=== PATIENT | female | born 1925 | race Caucasian/White ===

== ENCOUNTER 2016-05-02 15:10 | Emergency (ER) | payer MEDICARE, BC ==
[~2016-05-02] VITALS: Ht 152.4 cm; Wt 68.0 kg
[2016-05-02 15:10] VITALS: BP 120/53; PULSE 60; RESP 14; TEMP 98; O2SAT 93
[~2016-05-02 15:10] MED LIST: ALTA1.256 PO; ASPI325T PO; ASPI81 PO; CARV3.125 PO; CLOP75 PO; NEUR100C PO; ROSU5 PO
[2016-05-02 15:22] VITALS: RESP 16; O2SAT 93
[2016-05-02] MEDS ORDERED: SODIUM CHLOR 0.9% 1000 ML INJ 1,000 ML IV SCH (15:30)
--- NOTE | 2016-05-02 15:30 | PD ---
HPI Chief Complaint: General Weakness Time Seen by Provider: 15:17 Travel History International Travel<30 days: No Contact w/Intl Traveler<30days: No Traveled to known affect area: No History of Present Illness HPI 89-year-old female complains generalized malaise and weakness, coughing congestion and diarrhea. Patient states that the generalized malaise and weakness started yesterday. Patient states that she has nonproductive persistent cough since yesterday. Patient has nasal congestion since yesterday also. Patient denies any chest pain or shortness of breath. Patient denies abdominal pain. Patient started having diarrhea this afternoon. Patient denies any blood or mucus in the stool. Patient denies any back pain, fever chills. Patient has history of CAD status post stent placement, hyperlipidemia , CHF and hypertension. PFSH Past Medical History Arthritis: Yes (NECK/SHOULDERS) Asthma: No Autoimmune Disease: No Blood Disorders: No Anxiety: No Depression: No Heart Rhythm Problems: No Cancer: No Cardiac Catheterization: Yes Cardiovascular Problems: Yes (BYPASS 4 YRS AGO) High Cholesterol: Yes Chest Pain: No Congestive Heart Failure: Yes COPD: No Cerebrovascular Accident: No Diabetes: No Diminished Hearing: Yes (RIGHT EAR DIMINISHED) Endocrine: No GERD: No Glaucoma: No Genitourinary: No Headaches: No Hepatitis: No Hiatal Hernia: No Hypertension: Yes Immune Disorder: No Kidney Stones: No Musculoskeletal: Yes Neurologic: Yes Psychiatric: No Respiratory: No Migraines: No Myocardial Infarction: Yes (2003) Renal Failure: No Seizures: No Sickle Cell Disease: No Sleep Apnea: No Thyroid Disease: No Ulcer: No Tetanus Vaccination: Unknown Influenza Vaccination: Yes PNEUMOCCOCAL Vaccine (Year): 1 Menopausal: Yes Past Surgical History Abdominal Surgery: No AICD: No Appendectomy: No Arteriovenous Shunt: No Cardiac Surgery: Yes Cholecystectomy: No Coronary Artery Bypass Graft: Yes (01/19/2004) Ear Surgery: No Endocrine Surgery: No Eye Surgery: Yes (CATARACT SURGERY BILAT EYES 2004) Genitourinary Surgery: No Gynecologic Surgery: Yes (HYSTERECTOMY ) Hysterectomy: Yes () Insulin Pump: No Joint Replacement: No Oral Surgery: No Pacemaker: No Thoracic Surgery: No Other Surgery: Yes Social History Alcohol Use: No Tobacco Use: No Substance Use: No Allergies-Medications (Allergen,Severity, Reaction): Coded Allergies: Lipitor (Verified Allergy, Severe, 01/22/11) STATINS Lovastatin (Verified Allergy, Severe, ALL "STATINS",LEG CRAMPS,HIVES,HAIR LOSS, 01/22/11) Penicillin (Verified Allergy, Unknown, Rash, 01/22/11) Uncoded Allergies: STATINS (Adverse Reaction, Severe, LEG CRAMPS AND RASH, 07/06/09) Reported Meds & Prescriptions Reported Meds & Active Scripts Active Reported Plavix (Clopidogrel Bisulfate) 75 Mg Tab 75 Mg PO DAILY Aspirin 325 Mg Tab 325 Mg PO DAILY Altace (Ramipril) 1.25 Mg Cap 2.5 Mg PO BID Coreg (Carvedilol) 3.125 Mg Tab 3.125 Mg PO BID Neurontin (Gabapentin) 100 Mg Cap 0 PO UNKNOWN DOSE Aspirin 81 Mg Tab 325 Mg PO DAILY Crestor (Rosuvastatin Calcium) 5 Mg Tab 10 Mg PO DAILY Review of Systems General / Constitutional: No: Fever Eyes: No: Visual changes HENT: Positive: Congestion, No: Headaches Cardiovascular: No: Chest Pain or Discomfort Respiratory: Positive: Cough, No: Shortness of Breath Gastrointestinal: Positive: Diarrhea, No: Abdominal Pain Genitourinary: No: Dysuria Musculoskeletal: No: Pain Skin: No Rash Neurologic: No: Weakness Psychiatric: No: Depression Endocrine: No: Polydipsia Hematologic/Lymphatic: No: Easy Bruising Physical Exam Narrative GENERAL: Well-nourished, well-developed patient. SKIN: Warm and dry. HEAD: Normocephalic. EYES: No scleral icterus. No injection or drainage. NECK: Supple, trachea midline. No JVD or lymphadenopathy. CARDIOVASCULAR: Regular rate and rhythm without murmurs, gallops, or rubs. RESPIRATORY: Breath sounds equal bilaterally. No accessory muscle use. GASTROINTESTINAL: Abdomen soft, non-tender, nondistended. MUSCULOSKELETAL: No cyanosis, or edema. BACK: Nontender without obvious deformity. No CVA tenderness. Neurologic exam normal. Data Data Last Documented VS Vital Signs Date Time Temp Pulse Resp B/P Pulse Ox O2 Delivery O2 Flow Rate FiO2 05/02/16 15:31 60 14 93 Room Air 05/02/16 15:10 98.0 120/53 Orders Electrocardiogram (05/02/16 15:18) Complete Blood Count With Diff (05/02/16 15:18) Comprehensive Metabolic Panel (05/02/16 15:18) Creatine Kinase (Cpk) (2/4/17 15:18) Troponin I (05/02/16 15:18) B-Type Natriuretic Peptide (05/02/16 15:18) Prothrombin Time / Inr (Pt) (05/02/16 15:18) Act Partial Throm Time (Ptt) (05/02/16 15:18) Blood Culture (05/02/16 15:18) Lipase (05/02/16 15:18) Urinalysis - C+S If Indicated (05/02/16 15:18) Digoxin (05/02/16 15:18) Thyroid Stimulating Hormone (05/02/16 15:18) Influenzae A/B Antigen (05/02/16 15:18) Chest, Single Ap (05/02/16 15:18) Iv Access Insert/Monitor (05/02/16 15:18) Ecg Monitoring (05/02/16 15:18) Oximetry (05/02/16 15:18) Sodium Chlor 0.9% 1000 Ml Inj (Ns 1000 M (05/02/16 15:30) Lactic Acid (05/02/16 15:20) Urine Culture (05/02/16 15:35) Levofloxacin 750 Mg Premix Inj (Levaquin (05/02/16 16:30) Labs Laboratory Tests Test 05/02/16 05/02/16 15:05 15:35 White Blood Count 6.8 TH/MM3 Red Blood Count 3.69 MIL/MM3 Hemoglobin 11.2 GM/DL Hematocrit 32.7 % Mean Corpuscular Volume 88.5 FL Mean Corpuscular Hemoglobin 30.2 PG Mean Corpuscular Hemoglobin 34.1 % Concent Red Cell Distribution Width 15.6 % Platelet Count 193 TH/MM3 Mean Platelet Volume 9.6 FL Neutrophils (%) (Auto) 63.3 % Lymphocytes (%) (Auto) 21.6 % Monocytes (%) (Auto) 13.1 % Eosinophils (%) (Auto) 1.3 % Basophils (%) (Auto) 0.7 % Neutrophils # (Auto) 4.3 TH/MM3 Lymphocytes # (Auto) 1.5 TH/MM3 Monocytes # (Auto) 0.9 TH/MM3 Eosinophils # (Auto) 0.1 TH/MM3 Basophils # (Auto) 0.0 TH/MM3 CBC Comment DIFF FINAL Differential Comment Prothrombin Time 11.5 SEC Prothromb Time International 1.0 RATIO Ratio Activated Partial 26.8 SEC Thromboplast Time Sodium Level 136 MEQ/L Potassium Level 4.9 MEQ/L Chloride Level 104 MEQ/L Carbon Dioxide Level 23.9 MEQ/L Anion Gap 8 MEQ/L Blood Urea Nitrogen 28 MG/DL Creatinine 1.27 MG/DL Estimat Glomerular Filtration 40 ML/MIN Rate Random Glucose 120 MG/DL Lactic Acid Level 1.0 mmol/L Calcium Level 7.9 MG/DL Total Bilirubin 0.7 MG/DL Aspartate Amino Transf 24 U/L (AST/SGOT) Alanine Aminotransferase 14 U/L (ALT/SGPT) Alkaline Phosphatase 50 U/L Total Creatine Kinase 107 U/L Troponin I 0.05 NG/ML B-Type Natriuretic Peptide 565 PG/ML Total Protein 6.5 GM/DL Albumin 3.1 GM/DL Lipase 174 U/L Thyroid Stimulating Hormone 2.160 uIU/ML 3rd Gen Digoxin Level 1.5 NG/ML Urine Color YELLOW Urine Turbidity HAZY Urine pH 5.5 Urine Specific [place] 1.013 Urine Protein NEG mg/dL Urine Glucose (UA) NEG mg/dL Urine Ketones NEG mg/dL Urine Occult Blood NEG Urine Nitrite POS Urine Bilirubin NEG Urine Urobilinogen LESS THAN 2.0 MG/DL Urine Leukocyte Esterase MOD Urine RBC LESS THAN 1 /hpf Urine WBC 30 /hpf Urine WBC Clumps MOD Urine Squamous Epithelial <1 /hpf Cells Urine Bacteria OCC /hpf Urine Hyaline Casts 4 /lpf Urine Mucus FEW /lpf Microscopic Urinalysis Comment CATH-CULTURE IND MDM Medical Decision Making Medical Screen Exam Complete: Yes Emergency Medical Condition: Yes Interpretation(s) 1615 p.m. CBC within normal limit. Hemoglobin 11.2 hematocrit 32.7. Normal differential. UA positive with WBC and bacteria. 1732 PM. BUN 28. Creatinine 1.27. Lactic acid 1.0. BNP 565. UA positive WBC and bacteria. Digoxin 1.5. Differential Diagnosis Differential diagnosis including URI, bronchitis, pneumonia, gastroenteritis, electrolyte abnormality, dehydration, UTI, sepsis. Narrative Course 89-year-old female with generalized malaise and weakness, coughing congestion, diarrhea. Levaquin 750 mg IV given. Normal saline solution 100 cc an hour. Diagnosis Primary Impression: UTI (urinary tract infection) Qualified Code: N30.00 - Acute cystitis without hematuria Additional Impression: Renal insufficiency Patient Instructions: General Instructions Additional Instructions: Bactrim DS as directed. Encouraged by mouth fluid. Follow-up with personal physician. Return if persistent problem or worse. Lomotil as needed for diarrhea. Med/Other Pt SpecificInfo: Prescription(s) given Scripts Sulfamethoxazole-Trimethoprim (Bactrim DS)800-160 Mg Tab1 Tab PO BID #14 TAB Ref 0 Prov:Zack Garcia MD 05/02/16 Diphenoxylate-Atropine (Lomotil)2.5-0.025 Mg Tab1 Tab PO Q6H PRN (DIARRHEA) #10 TAB Ref 0 Prov:Zack Garcia MD 05/02/16 Disposition: 01 DISCHARGE HOME Condition: Stable Zack Garcia MD May 02, 2016 15:30
[2016-05-02 15:59] LABS: HEMATOCRIT 32.7 % (35.0-46.0); HEMO FLAGS DIFF FINAL; MEAN CELL VOLUME 88.5 FL (80.0-100.0); MEAN CORPUSCULAR HEMOGLOBIN 30.2 PG (27.0-34.0); MEAN CORPUSCULAR HGB CONC 34.1 % (32.0-36.0); NEUT % 63.3 % (16.0-70.0); PLATELET COUNT 193 TH/MM3 (150-450); RED BLOOD COUNT 3.69 MIL/MM3 (4.00-5.30); RED CELL DISTRIBUTION WIDTH 15.6 % (11.6-17.2); WHITE BLOOD COUNT 6.8 TH/MM3 (4.0-11.0)
[2016-05-02 16:00] LABS: AUTOMATED NEUTROPHIL # 4.3 TH/MM3 (1.8-7.7); BASOPHIL % 0.7 % (0.0-2.0); EOSINOPHIL # 0.1 TH/MM3 (0-0.4); EOSINOPHIL % 1.3 % (0.0-4.0); LYMPH % 21.6 % (9.0-44.0); LYMPHOCYTE # 1.5 TH/MM3 (1.0-4.8); MONO % 13.1 % (0.0-8.0)
[2016-05-02 16:04] LABS: BACTERIA, URINE OCC /hpf; BLOOD, URINE NEG (NEG); COMMENT (UR) CATH-CULTURE IND; CULTURE IF INDICATED CATH CULTURE IND; GLUCOSE,URINE NEG (NEG); HYALINE CAST, URINE 4 /lpf (RARE); KETONE, URINE NEG (NEG); MUCUS URINE FEW /lpf (OCC); PH, URINE 5.5 (5.0-8.5); SQUAMOUS EPITHELIAL CELL URINE <1 /hpf (0-5); URINE COLOR YELLOW (YELLW/STRAW)
[2016-05-02 16:05] LABS: NITRITE,URINE POS (NEG)
[2016-05-02 16:09] LABS: APTT (PATIENT) 26.8 SEC (24.3-30.1); PROTHROMBIN TIME - PATIENT 11.5 SEC (9.8-11.6)
[2016-05-02] MEDS ORDERED: LEVOFLOXACIN 750 MG PREMIX INJ 150 ML IV ONE (16:30)
--- NOTE | 2016-05-02 16:33 | RADRPT ---
EXAM DATE/TIME: 05/02/2016 15:43 [facility] COMPARISON: No previous studies available for comparison. INDICATIONS : Short of Breath, Cough. MEDICAL HISTORY : None. SURGICAL HISTORY : Pacemaker. ENCOUNTER: Initial ACUITY: 1 day PAIN SCORE: 0/10 LOCATION: Bilateral chest FINDINGS: A single view of the chest demonstrates cardiomegaly. Pacer leads overlie right atrium, right ventric le and coronary sinus. Mild basilar airspace disease. No pneumothorax. Postoperative CABG. CONCLUSION: 1. Cardiomegaly with mild basilar airspace disease. Gaurang Damon MD on May 02, 2016 at 16:29 Board Certified Radiologist. This report was verified electronically.
[2016-05-02 16:48] LABS: ALT (GPT) 14 U/L (10-53); ANION GAP 8 MEQ/L (5-15); AST (GOT) 24 U/L (15-37); BICARBONATE 23.9 MEQ/L (21.0-32.0); BLOOD UREA NITROGEN 28 MG/DL (7-18); CHLORIDE 104 MEQ/L (98-107); GLOMERULAR FILTRATION RATE 40 ML/MIN (>89); SODIUM (NA) 136 MEQ/L (136-145)
[2016-05-02 16:51] LABS: POTASSIUM 4.9 MEQ/L (3.5-5.1)
[2016-05-02 16:52] LABS: ALKALINE PHOSPHATASE 50 U/L (45-117); CREATINE KINASE 107 U/L (26-192); DIGOXIN 1.5 NG/ML (0.8-2.0); TOTAL BILIRUBIN ADULT 0.7 MG/DL (0.2-1.0)
[2016-05-02] MEDS ORDERED: LOMO2.5T PO (17:36)
[2016-05-02] MEDS ORDERED: BACT800T5 PO (17:36)
--- NOTE | 2016-05-04 12:24 | EKG ---
Date Performed: 05/02/2016 Time Performed: 15:26:19 PTAGE: 89 years EKG: ELECTRONIC ATRIAL PACEMAKER ELECTRONIC VENTRICULAR PACEMAKER ABNORMAL RHYTHM ECG PREVIOUS TRACING : 01/23/2011 05.51 DOCTOR: Juarez Ortiz Interpretating Date/Time 05/04/2016 12:22:10
== END 2016-05-02 18:46 | disposition home or self-care (01) ==
LOC: NEPA 15:10
DX: N30.00 Acute cystitis without hematuria (principal); B96.1 Klebsiella pneumoniae [K. pneumoniae] as the cause of diseases classified elsewhere; N28.9 Disorder of kidney and ureter, unspecified; R05 Cough; I50.9 Heart failure, unspecified; I25.2 Old myocardial infarction; I10 Essential (primary) hypertension; R94.31 Abnormal electrocardiogram [ECG] [EKG]
CPT/HCPCS: 71010; 80053; 80162; 81001; 82550; 83605; 83690; 83880; 84443; 84484; 85025; 85610; 85730; 87040; 87077; 87086; 87186; 87804; 93005; 96374; 99284; J1956; J7030